=== PATIENT | male | born 2000 | race Caucasian/White ===

== ENCOUNTER 2018-08-24 05:53 | Emergency (ER) | payer SELFPAY ==
[~2018-08-24] VITALS: Ht 172.7 cm; Wt 64.0 kg
[2018-08-24] MEDS ORDERED: IBUPROFEN 200 MG TABLET ONE (06:10)
[2018-08-24] MEDS ORDERED: IBUPROFEN 200 MG TABLET PO ONE (06:30)
[2018-08-24] MEDS ORDERED: PLEASE ENTER ALLERGIES MC SCH (06:30)
--- NOTE | 2018-08-24 06:40 | NUR ---
LATE ENTRY 0600-[facility]IB [facility] PT WAS AT HOME ON WAY TO WORK AND SLIPPED ON STAIRS AND FELL ON BACK, PT C/O LOWER BACK PAIN, +CMS,NO LOC, ABRASION NOTED TO LEFT CHEEK. MONITORS APPLIED, SIDERAILS UP X2, CALL LIGHT WITHIN REACH, DAD AT BEDSIDE.
--- NOTE | 2018-08-24 06:44 | NUR ---
PT TO XRAY
--- NOTE | 2018-08-24 06:54 | NUR ---
REPORT GIVEN TO PARIS MANDEL
--- NOTE | 2018-08-24 07:22 | NUR ---
Report from Dennise TOLEDO. Pt returned from xray. NAD at this time.
[2018-08-24 07:42] VITALS: BP 122/68
== END 2018-08-24 08:11 | disposition home or self-care (01) ==
LOC: ED 07:35
DX: S30.0XXA Contusion of lower back and pelvis, initial encounter (principal); F17.210 Nicotine dependence, cigarettes, uncomplicated; W01.0XXA Fall on same level from slipping, tripping and stumbling without subsequent striking against object, initial encounter; Y93.89 Activity, other specified; Y92.89 Other specified places as the place of occurrence of the external cause; Y99.8 Other external cause status
CPT/HCPCS: 72072; 72110; 99283